=== PATIENT | male | born 1950 | race Caucasian/White ===

== ENCOUNTER 2024-02-10 09:52 | Observation (INO) | payer MEDICARE, SELFPAY ==
[2024-02-10] VITALS (14 sets, daily range): BP systolic 169–199; BP diastolic 74–91; PULSE 60–97; RESP 14–21; TEMP 36.6–36.8; O2SAT 95–100; BMI 34.0
--- NOTE | ~2024-02-10 | XR_ITS ---
EXAMINATION: XR chest 1V DATE: 02/10/2024 10:36 INDICATION: Slurred speech. Right hemiparesis. TECHNIQUE: A single frontal view of the chest was obtained. COMPARISON: CT abdomen and pelvis 10/22/2017 FINDINGS: There are airspace opacities at left lung base. No pleural effusion or pneumothorax. The he art size is normal. There are changes of anterior fusion procedure in cervical spine. IMPRESSION: 1. Airspace opacities at left lung base, consistent with atelectasis versus pneumonia. Reviewed, dictated and finalized at location A. PILOT ENGINEER IMPRESSION: 1. Airspace opacities at left lung base, consistent with atelectasis versus pne umonia.
--- NOTE | ~2024-02-10 | MR_ITS ---
EXAMINATION: MR brain/brain stem wo con DATE: 02/11/2024 16:37 INDICATION: stroke evaluation TECHNIQUE: Magnetic resonance imaging (MRI) of the brain and brainstem was performed without intraven ous contrast. Sequences included sagittal and axial T1-weighted SE, axial diffusion-weighted FS EPI A SSET, axial T2*-weighted GRE, axial T2-weighted FLAIR Propeller, and axial T2-weighted Propeller. Michael arent diffusion coefficient (ADC) maps were created. COMPARISON: CT brain and CTA brain carotid 02/10/2024 FINDINGS: Very small focus of restricted diffusion in the right centrum semiovale. Slightly larger but still fo hawa area of (ventricular acute diffusion measuring up to 1.5 cm. Old focal lacunar infarct in the lef t basal ganglia and adjacent white matter. No MRI evidence of hemorrhage or extra-axial collection. N o suspicious foci of susceptibility to suggest prior intraparenchymal hemorrhage. Moderate patchy whi te matter hyperintensity, likely representing moderate small vessel ischemic disease . Mild generalized parenchymal volume loss. The basilar cisterns are patent. Flow voids are preserved . Paranasal sinuses are within normal limits. Globes and orbital contents are within normal limits. IMPRESSION: Small, focal acute infarcts involving the left periventricular white matter and right centrum semiova le. Reviewed, dictated and finalized at location K. S MGR IMPRESSION: Small, focal acute infarcts involving the left periventricular white matter and right centrum semiovale.
--- NOTE | ~2024-02-10 | CT_ITS ---
EXAMINATION: CTA BRAIN/CAROTID DATE: 02/10/2024 10:30 INDICATION: Right-sided weakness and slurred speech TECHNIQUE: Computed tomographic angiography (CTA) of the head and neck was performed with 100 mL Omni paque-350 intravenous contrast. Multiplanar reconstructions and maximum intensity projection 3D-recon structions of the carotid arteries and of the intracranial arteries were created by the technologist on a separate workstation. Automated exposure control and iterative reconstruction technique were emp loyed.The dose-length product was 1145.84 mGy-cm. COMPARISON: None. FINDINGS: Carotid arteries: Visualized aortic arch is normal in caliber with some ulcerated atherosclerotic plaque but with no he modynamic shift of stenosis or dissection. There is mild atherosclerotic plaque with 10% stenosis of the right carotid bulb relative to normal distal artery lumen diameter (NASCET criteria). There is ad ditional small amount of atherosclerotic plaque with 0% stenosis of the left carotid bulb relative to normal distal artery lumen diameter. The extracranial vertebral arteries are codominant with no hemo dynamically significant stenosis. Mild emphysema. Mild cervical spondylosis with C4-C5 instrumented a nterior spinal fusion with interbody fusion device and anterior plate-screw fixation. Intracranial ar teries Bilateral vertebral arteries are codominant. There is atherosclerotic plaque without hemodynamically significant stenosis at the bilateral carotid siphons. There is no hemodynamically significant stenos is in the vertebral, basilar and internal carotid arteries. There are no aneurysms identified. Both A1 and P1 segments are patent. There are also patent anterior communicating and right posterior commu nicating arteries. Cerebral arterial arborization appears symmetric. IMPRESSION: 1. 10% stenosis of the right carotid bulb relative to normal distal artery lumen diameter (NASCET cri teria). 2. 0% stenosis of the left carotid bulb relative to normal distal artery lumen diameter. 3. Nonhemodynamically significant atherosclerotic plaque at the bilateral carotid siphons. No hemodyn amically significant stenosis, thrombosis or aneurysm. Reviewed, dictated and finalized at location B. ATIONAL TECHNOLOGY SPECIALIST IMPRESSION: 1. 10% stenosis of the right carotid bulb relative to normal distal artery lume n diameter (NASCET criteria). 2. 0% stenosis of the left carotid bulb relative to normal distal artery lumen diameter. 3. Nonhemodynamically significant atherosclerotic plaque at the bilateral carot id siphons. No hemodynamically significant stenosis, thrombosis or aneurysm.
--- NOTE | ~2024-02-10 | CT_ITS ---
CT head without contrast Indication: Right-sided weakness, slurred speech Technique: Serial scans were obtained through the brain without the administration of contrast. Dose reduction technique was used on this scan by utilizing automated exposure control and iterative recon struction technique. The dose-length product (DLP) was 605.33 mGy-cm. Findings: There is no evidence of intracranial hemorrhage, mass lesion, or acute infarct. Several sca ttered chronic lacunar infarcts are noted. The ventricles and subarachnoid spaces are dilated, consis tent with minimal atrophy. Low attenuation regions are seen within the periventricular white matter bilaterally, likely representing changes from chronic microvascular ischemic disease. There is no britta dence of edema, mass effect or midline shift. The visualized paranasal sinuses and mastoid air cell s are clear. Impression: No intracranial hemorrhage, mass, or acute infarct. Several chronic lacunar infarcts. Atrophy and chronic white matter changes, as above. Case discussed with Dr. Johnson at 10:35 AM on 01/14/2024. Reviewed, dictated and finalized at location . CAL REVIEWER Impression: No intracranial hemorrhage, mass, or acute infarct. Several chronic lacunar infarcts. Atrophy and chronic white matter changes, as above. Case discussed with Dr. Johnson at 10:35 AM on 01/14/2024.
--- NOTE | 2024-02-10 10:01 | ECG_ITS ---
Test Date: 2024-02-10 10:17:36 Measurements Intervals [place] Rate: 72 P: 17 MI: 156 QRS: -33 QRSD: 106 T: 81 QT: 370 QTc: 406 Interpretive Statements SINUS RHYTHM MARKED LEFT AXIS DEVIATION [QRS AXIS < -30] artifact No previous ECG available for comparison Electronically Signed On 02-10-2024 18:12:16 LABORER HEADING by Madison Dorsey M.D.
[2024-02-10 10:07] LABS: Glucose Point of Care 128 mg/dl (65-105)
[2024-02-10 10:32] LABS: Basophils Absolute Auto 0.1 K/mm3 (0.0-0.1); Basophils Percent Auto 0.8 % (0.2-1.2); Eosinophils Absolute Auto 0.3 K/mm3 (0-0.3); Eosinophils Percent Auto 4.4 % (0-4.4); Hemoglobin 15.3 g/dL (14.0-18.0); Immature Granulocyte Absolute 0.03 K/mm3 (0.00-0.031); Immature Granulocyte Percent A 0.5 % (0-0.5); Lymphocytes Absolute Auto 1.66 K/mm3 (0.9-3.2); Lymphocytes Percent Auto 25.1 % (18.3-44.2); Mean Corpuscular HGB Conc 32.6 g/dl (32-36); Mean Corpuscular Hemoglobin 30.4 pg (26-34); Mean Corpuscular Volume 93.4 fl (80-100); Mean Platelet Volume 10.1 fl (7.4-10.4); Monocytes Absolute Auto 0.7 K/mm3 (0.1-0.6); Monocytes Percent Auto 10.4 % (2.6-8.5); Neutrophils Absolute Auto 3.9 K/mm3 (1.3-6.7); Neutrophils Percent Auto 58.8 % (45.5-73.1); Platelet Count Result 162 k/mm3 (150-375); Red Blood Count 5.03 M/mm3 (4.6-6.20); Red Cell Distribution Width 13.6 % (11.5-14.5); White Blood Count 6.6 K/mm3 (4.5-10.0)
[2024-02-10 10:47] LABS: Prothrombin Time 13.7 Seconds (11.1-14.7)
[2024-02-10 10:48] LABS: Alanine Aminotransferase 32 U/L (6-50); Albumin Level 4.4 g/dL (3.5-5.1); Alkaline Phosphatase 63 U/L (38-126); Anion Gap 5 mmol/L (4-12); Aspartate Amino Transferase 29 U/L (17-59); Bilirubin,Total 0.8 mg/dL (0.2-1.3); Blood Urea Nitrogen 17 mg/dL (9-20); Calcium 9.2 mg/dL (8.4-10.2); Carbon Dioxide 29 mmol/L (22-30); Chloride 105 mmol/L (98-107); Estimated CRCL calculation 84 ml/min; Estimated Glomerular Filt Rate > 60; Glucose 130 mg/dL (65-110); Partial Thromboplastin Time 27.2 Seconds (22.3-36.8); Sodium 139 mmol/L (137-145)
[2024-02-10 11:02] LABS: Troponin I 0.059 ng/mL (0.000-0.034)
[2024-02-10 11:36] LABS: Glucose Point of Care 100 mg/dl (65-105)
--- NOTE | 2024-02-10 12:51 | ED_ITS ---
HPI - Neuro Symptoms/Deficit General Chief Complaint: Suspected CVA Stated Complaint: right side weakness Time Seen by Provider: 02/10/24 11:13 Source: patient Mode of arrival: ambulatory Limitations: no limitations History of Present Illness HPI Narrative: 73-year-old with a history of hypertension, arthralgias, here with the complaints of right sided weakness this started about 1:00 a.m. this morning. Patient states that his right arm and right lower leg were heavy he was unable to use vital signs contusion pressure. However he managed to sleep came to the ER this morning as he was still having difficulty in walking. He denies any headache. Denies any previous history of stroke. Onset (ago): hour(s) (9) Timing confirmed by: family member Location: right arm and right leg History of same: No Severity: moderate Relieving factors: none Exacerbating factors: none Context: sudden onset Associated symptoms: denies other symptoms Related Data Allergies Allergy/AdvReac Type Severity Reaction Status Date / Time Penicillins Allergy Unknown Verified 07/30/11 13:38 Review of Systems 2 Review of Systems: All systems reviewed & are unremarkable except as noted in HPI and below Constitutional: Constitutional: Reports no additional constitutional complaints Eyes: Eyes: Reports no additional eye complaints ENT: Reports system reviewed and no additional complaints, except as documented Cardiovascular: Cardiovascular: Reports no additional cardiovascular complaints Respiratory: Respiratory: Reports no additional respiratory complaints Gastrointestinal: Gastrointestinal: Reports no additional gastrointestinal complaints Musculoskeletal: Musculoskeletal: Reports no additional musculoskeletal complaints Neurologic: Reports system reviewed and no additional complaints, except as documented PMFSH Family History Family History Father Family history of lung cancer Mother Family history of coronary artery disease Social History Social History Smoking end date: 02/11/11 Alcohol intake: never Exam 2 Narrative: GENERAL: Well-appearing, well-nourished, and in no acute distress. HEAD: Normocephalic, atraumatic. EYES: PERRLA and EOMI. ENT: Nares clear, no rhinorrhea or epistaxis. Mucous membranes moist. has loss of nasolabial fold in the right . NECK: Supple. CHEST: Clear to auscultation. No respiratory distress. HEART: Regular rate and rhythm. No murmur heard. Normal peripheral pulses. ABDOMEN: Soft, nontender, nondistended, normal active bowel sounds. EXTREMITIES: Normal range of motion. No edema. SKIN: Warm, dry, no rash. NEURO: No focal deficits. Alert and oriented x3.mild loss of right facial PSYCH: Normal mood and affect. Course Course Emergency Course: Informed patient about his lab work , CT findings , agreed for admission. discussed with Dr. Noel will consult , discussed with Hospitalist will accept. Vital Signs Vital signs: Vital Signs Temperature 36.6 C 02/10/24 09:58 Pulse Rate 78 02/10/24 09:58 Respiratory Rate 20 02/10/24 09:58 Blood Pressure 180/74 H 02/10/24 09:58 Pulse Oximetry 98 02/10/24 09:58 Oxygen Delivery Room Air 02/10/24 09:58 Temperature 36.6 C 02/10/24 09:58 Pulse Rate 62 02/10/24 11:20 Respiratory Rate 14 02/10/24 11:14 Blood Pressure 169/88 H 02/10/24 11:14 Pulse Oximetry 98 02/10/24 11:14 Oxygen Delivery Room Air 02/10/24 09:58 MDM - Neuro Symptoms/Deficit Differential Diagnosis Differential diagnosis: Likely cerebrovascular accident and transient cerebral ischemia Medical Records Attestation: I reviewed the patient's medical records. Lab Data Attestation: I reviewed the patient's lab results. 02/10/24 10:12 02/10/24 10:12 Labs: Lab Results 02/10/24 02/10/24 02/10/24 Range/Units 10:05 10:12 11:33 WBC 6.6 (4.5-10.0) K/mm3 RBC 5.03 (4.6-6.20) M/mm3 Hgb 15.3 (14.0-18.0) g/dL Hct 47.0 (42.0-52.0) % MCV 93.4 (80-100) fl MCH 30.4 (26-34) pg MCHC 32.6 (32-36) g/dl RDW 13.6 (11.5-14.5) % Plt Count 162 (150-375) k/mm3 MPV 10.1 (7.4-10.4) fl Immature Gran % (Auto) 0.5 (0-0.5) % Neut % (Auto) 58.8 (45.5-73.1) % Lymph % (Auto) 25.1 (18.3-44.2) % [place] % (Auto) 10.4 H (2.6-8.5) % Eos % (Auto) 4.4 (0-4.4) % Baso % (Auto) 0.8 (0.2-1.2) % Lymph # (Auto) 1.66 (0.9-3.2) K/mm3 [place] # (Auto) 0.7 H (0.1-0.6) K/mm3 Eos # (Auto) 0.3 (0-0.3) K/mm3 Baso # (Auto) 0.1 (0.0-0.1) K/mm3 Abs Immat Gran (auto) 0.03 (0.00-0.031) K/mm3 Absolute Neuts (auto) 3.9 (1.3-6.7) K/mm3 Absolute Nucleated RBC 0.000 (0.0-0.012) K/mm3 Nucleated RBC % 0.0 (0.0-0.2) % PT 13.7 (11.1-14.7) Seconds INR 1.0 APTT 27.2 (22.3-36.8) Seconds Sodium 139 (137-145) mmol/L Potassium 4.0 (3.4-5.0) mmol/L Chloride 105 (98-107) mmol/L Carbon Dioxide 29 (22-30) mmol/L Anion Gap 5 (4-12) mmol/L BUN 17 (9-20) mg/dL Creatinine 0.90 (0.7-1.3) mg/dL Estim Creat Clear Calc 84 ml/min Estimated GFR > 60 (59 - ) Glucose 130 H (65-110) mg/dL POC Capillary Glucose 128 H 100 (65-105) mg/dl Calcium 9.2 (8.4-10.2) mg/dL Total Bilirubin 0.8 (0.2-1.3) mg/dL AST 29 (17-59) U/L ALT 32 (6-50) U/L Alkaline Phosphatase 63 (38-126) U/L Troponin I 0.059 H* (0.000-0.034) ng/mL Total Protein 7.0 (6.3-8.2) g/dL Albumin 4.4 (3.5-5.1) g/dL ECG Data EKG #1: ECG completion date: 02/10/24 ECG completion time: 10:17 EKG Interpretation: normal rate (72), non-specific ST changes and left axis Discharge Plan Discharge Clinical Impression: Right sided weakness, TIA (transient ischemic attack) Patient Disposition: Still a Patient Condition: Stable Patient Language: Indonesian Follow-up/Referrals: Bonilla,Vernon Pepper MD [Primary Care Provider] - Time of Disposition: 13:37 Quality Stroke Date of last known normal: 02/10/24 Time of last known normal: 11:00 Stroke Scale Stroke Scale 1: Stroke scale date:: 02/10/24 Stroke scale time:: 11:05 1a Level of consciousness: alert-0 1b Level of consciousness questions: answers both correctly-0 1c Level of consciousness commands: obeys both correctly-0 2 Best gaze: normal-0 3 Visual: no visual loss-0 4 Facial palsy: minor paralysis-1 5a Motor: left arm: no drift-0 5b Motor: right arm: no drift-0 6a Motor: left leg: no drift-0 6b Motor: right leg: no drift-0 7 Limb ataxia: absent-0 8 Sensory: normal-0 9 Best language: no aphasia-0 10 Dysarthria: normal-0 11 Extinction and inattention: no abnormality-0 Level:: 1
--- NOTE | 2024-02-10 12:57 | P.HP_ITS ---
H&P: HPI History of Present Illness Date/Time: 02/10/24 12:57 Chief Complaint: Right side weakness Narrative: 73-year-old male presents the hospital with complaints of right-sided weakness in upper and lower extremities. Patient states that he woke up in middle of night until heaviness on his right side is upper lower extremities. After he went to the bathroom he went back to bed. Patient's last known time of well was 1:00 a.m. he states that whenever he woke up during the day he felt the same way so he came into the emergency room. Patient also complains of increased shortness of breath wheezing, a cough with sputum. Chest x-ray shows Airspace opacities at left lung base, consistent with atelectasis versus pneumonia. 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 Patient's baseline troponin is elevated at 0.059 with 2 hour troponin trending down, aggressive lab work is within normal limits. Review of Systems Review of Systems: 12 systems were reviewed and are negativ e except for as per HPI. [facility] Past Medical History Medical History (Updated 02/10/24 @ 22:13 by Gia Craft APRN) Shingles COPD (chronic obstructive pulmonary disease) Anxiety Family History Family History (Updated 02/10/24 @ 22:14 by Gia Craft APRN) Father Family history of lung cancer Mother Family history of coronary artery disease Other Cerebrovascular accident Social History Social History Smoking status: Former smoker Tobacco type: cigarettes Smoking end date: 10/20/23 Alcohol intake: never Substance use: never Do You Feel Safe in your Home?: Yes Lack of Transportation: No Lack of Food: Never True Current Housing: I Have Housing Concerned About Future Housing: No Difficulty Paying Gas/Electric Bills: No Difficulty Paying for Meds: No Currently Unemployed: No Education: Associate Degree Difficulty w/ Childcare or Family Care: No Spiritual care concerns: No Meds Home Medications and Allergies Home Medications ?Medication ?Instructions ?Recorded ?Confirmed ?Type albuterol sulfate 90 mcg/actuation 2 puff inhalation .q12hr 02/10/24 02/10/24 History aerosol inhaler budesonide-formoterol HFA 160 2 puff inhalation Q12H 02/10/24 02/10/24 History mcg-4.5 mcg/actuation aerosol inhaler diazepam 10 mg tablet 10 mg PO HS PRN anxiety 02/10/24 02/10/24 History meloxicam 15 mg tablet 15 mg PO DAILY 02/10/24 02/10/24 History metoprolol succinate 100 mg 100 mg PO DAILY 02/10/24 02/10/24 History tablet,extended release 24 hr valacyclovir 500 mg tablet 500 mg PO DAILY 02/10/24 02/10/24 History Allergies Allergy/AdvReac Type Severity Reaction Status Date / Time Penicillins Allergy Unknown Verified 07/30/11 13:38 Vital Signs Vital Signs - 24 hr 02/10/24 09:58 02/10/24 09:58 02/10/24 11:14 Temperature 97.8 F Pulse Rate 78 78 63 Respiratory Rate 20 20 14 Blood Pressure 180/74 H 180/74 H 169/88 H Pulse Oximetry 98 98 98 Oxygen Delivery Room Air 02/10/24 11:20 Temperature Pulse Rate 62 Respiratory Rate Blood Pressure Pulse Oximetry Oxygen Delivery Exam Narrative: General: well appearing, appears stated age. HEENT: Left facial droop, normocephalic, atraumatic. Mucous membranes moist. EOMI, PERRLA, bilateral sclera anicteric, no conjunctival injection. Neck supple without JVD, lymphadenopathy, or bruit. Respiratory: Rhonchi and inspiratory and expiratory wheezes Cardiovascular: Regular rate and rhythm, normal S1-S2 upon ascultation. No murmurs, rubs, or clicks. PMI is nondisplaced, capillary refill less than 3 second. Abdomen: Soft, round, no pulsatile masses, nondistended and nontender. No rebound, no guarding. No CVA tenderness, no hepatosplenomegaly. Bowel sounds present to all four quadrants. No high pitch or tinkling sounds, resonant to percussion. Extremities: No cyanosis, clubbing, or edema present. Pulses are palpable 2/2. Active ROM to all four extremities. 5/5 strength in all extremities Neuro: Alert and orientated x 4. PERRLA. Cranial nerves 2-12 intact without focal deficit. Skin: Warm, dry, and intact, without rash, erythema, or lesion. Psych: pleasant, cooperative, normal speech, normal affect, no hallucinations, no dysarthia H&P: Results Labs Labs: Short CBC 02/10/24 Range/Units 10:12 WBC 6.6 (4.5-10.0) K/mm3 Hgb 15.3 (14.0-18.0) g/dL Hct 47.0 (42.0-52.0) % Plt Count 162 (150-375) k/mm3 BMP 02/10/24 10:12 Sodium 139 Potassium 4.0 Chloride 105 Carbon Dioxide 29 BUN 17 Creatinine 0.90 Glucose 130 H Calcium 9.2 Cardiac Enzymes 02/10/24 Range/Units 10:12 Troponin I 0.059 H* (0.000-0.034) ng/mL Liver Function 02/10/24 Range/Units 10:12 Total Bilirubin 0.8 (0.2-1.3) mg/dL AST 29 (17-59) U/L ALT 32 (6-50) U/L Alkaline Phosphatase 63 (38-126) U/L Albumin 4.4 (3.5-5.1) g/dL Assessment and Plan Assessment and plan (1) Right sided weakness: Code(s): R53.1 - Weakness Status: Acute Assessment and Plan: Possible stroke CT head and CTA show no acute stroke, old infarcts seen Neurology consulted pending recommendations Permissive hypertension Plavix 300 mg x 1 given in the emergency room Daily Plavix Aspirin 3 and 25 mg x 1 given in the emergency room Echocardiogram pending (2) Elevated troponin: Code(s): R79.89 - Other specified abnormal findings of blood chemistry Status: Acute Assessment and Plan: Flat Patient denies chest pain EKG for chest pain Trend troponin until flat (3) Pneumonia: Code(s): J18.9 - Pneumonia, unspecified organism Status: Acute Assessment and Plan: atelectasis versus pneumonia On assessment patient's lung sounds coarse, rhonchi and inspiratory and expiratory wheezes Breathing treatments q.6 Azithromycin and Rocephin Guaifenesin (4) COPD (chronic obstructive pulmonary disease): Code(s): J44.9 - Chronic obstructive pulmonary disease, unspecified Status: Acute Assessment and Plan: Secondary to above Home inhaler reordered (5) Anxiety: Code(s): F41.9 - Anxiety disorder, unspecified Status: Acute Assessment and Plan: Home diazepam has been reordered Plan On long-term Valtrex Quality VTE Prophylaxis VTE prophylaxis: mechanical ordered and pharmacologic ordered Hospitalist MIPS Advance Care Plan I have confirmed that the patient's Advanced Care Plan is present, code status is documented, or surrogate decision maker is listed in patient medical record.: Yes Medication Reconciliation I have utilized all available resources to obtain, update and review the patients current medications (includes all prescriptions, OTC, herbals, cannabis, and nutritional supplements).: Yes
--- NOTE | 2024-02-10 13:28 | ECG_ITS ---
Test Date: 2024-02-10 13:37:09 Measurements Intervals [place] Rate: 60 P: 20 GA: 178 QRS: -56 QRSD: 106 T: 89 QT: 403 QTc: 404 Interpretive Statements SINUS RHYTHM LEFT ANTERIOR FASCICULAR BLOCK [QRS AXIS <= -45, QR IN I, RS IN II] NONSPECIFIC ST & T-WAVE ABNORMALITY Compared to ECG 02/10/2024 10:17:36 Left anterior fascicular block now present Left-axis deviation no longer present T-wave abnormality still present Electronically Signed On 02-10-2024 18:06:12 PAPER GOODS MACHINE OPERATOR by Madison Dorsey M.D.
[2024-02-10] MEDS: CLOPIDOGREL BISULFATE 300 MG TABLET PO (14:03)
[2024-02-10 14:13] LABS: Troponin I 0.057 ng/mL (0.000-0.034)
--- NOTE | 2024-02-10 16:40 | ECG_ITS ---
Test Date: 2024-02-10 16:50:10 Measurements Intervals [place] Rate: 60 P: 19 NM: 184 QRS: -50 QRSD: 101 T: 78 QT: 392 QTc: 394 Interpretive Statements SINUS RHYTHM LEFT ANTERIOR FASCICULAR BLOCK [QRS AXIS <= -45, QR IN I, RS IN II] NONSPECIFIC ST & T-WAVE ABNORMALITY Compared to ECG 02/10/2024 13:37:09 No significant changes Electronically Signed On 02-10-2024 17:55:26 COUNTY DIRECTOR by Madison Dorsey M.D.
--- NOTE | 2024-02-10 17:25 | ADMGEN ---
This patient, Carmen Morgan, was admitted to Medical Room 260-01. Patient/family oriented to hospital policies and general routines including ID bracelet, bed and alarms, visiting hours, pain management, procedures, bathroom and other care routines, personal items, smoking policy, room service/diet, and visiting hours. Information on how to activate the Rapid Response Team has been discussed. Patient/Family are encouraged to report perceived risks to care and to ask questions if they do not understand what they are told or what they should do.
[2024-02-10 17:39] LABS: Troponin I 0.059 ng/mL (0.000-0.034)
[2024-02-10] MEDS: guaiFENesin/DEXTROMETHORPHAN 10 ML UDC PO (23:07)
[2024-02-11] VITALS (17 sets, daily range): BP systolic 138–180; BP diastolic 74–85; PULSE 53–80; RESP 14–20; TEMP 36.1–36.8; O2SAT 93–98
[2024-02-11] MEDS: IPRATROPIUM 0.5 MG/ALBUTEROL SULFATE 2.5 MG AMPUL.NEB 3 ML INHALATION ×4 (01:14→22:12)
[2024-02-11] MEDS: guaiFENesin/DEXTROMETHORPHAN 10 ML UDC PO ×5 (05:43→20:01)
[2024-02-11 06:26] LABS: Anion Gap 3 mmol/L (4-12); Blood Urea Nitrogen 14 mg/dL (9-20); Calcium 8.9 mg/dL (8.4-10.2); Carbon Dioxide 27 mmol/L (22-30); Chloride 104 mmol/L (98-107); Estimated CRCL calculation 93 ml/min; Estimated Glomerular Filt Rate > 60; Glucose 131 mg/dL (65-110); Sodium 134 mmol/L (137-145)
[2024-02-11 06:39] LABS: Troponin I 0.049 ng/mL (0.000-0.034)
[2024-02-11] MEDS: FLUTICASONE/SALMETEROL 115-21 MCG INHALER 1 PUFF 2 PUFF INHALATION ×2 (08:26→22:12)
[2024-02-11] MEDS: ASPIRIN 325 MG TABLET PO (08:46)
[2024-02-11] MEDS: CLOPIDOGREL BISULFATE 75 MG TABLET PO (08:46)
[2024-02-11] MEDS: valACYclovir HCL 500 MG TABLET PO (08:46)
[2024-02-11] MEDS: METOPROLOL SUCCINATE EXT REL 100 MG TABCR PO (08:46)
--- NOTE | 2024-02-11 09:27 | P.PNIM_ITS ---
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 Neurology consulted pending recommendations Permissive hypertension Plavix 300 mg x 1 given in the emergency room Daily Plavix Aspirin 3 and 25 mg x 1 given in the emergency room Echocardiogram ordered- pending (2) Elevated troponin: Code(s): R79.89 - Other specified abnormal findings of blood chemistry Status: Acute Assessment and Plan: Flat Patient denies chest pain EKG for chest pain Trend troponin until flat (3) Pneumonia: Code(s): J18.9 - Pneumonia, unspecified organism Status: Acute Assessment and Plan: atelectasis versus pneumonia Patient symptomatic- lung sounds coarse, rhonchi and inspiratory and expiratory wheezes Breathing treatments q.6 Azithromycin and Rocephin-will continue Guaifenesin prn (4) COPD (chronic obstructive pulmonary disease): Code(s): J44.9 - Chronic obstructive pulmonary disease, unspecified Status: Acute Assessment and Plan: Secondary to above Home inhaler reordered (5) Anxiety: Code(s): F41.9 - Anxiety disorder, unspecified Status: Acute Assessment and Plan: Home diazepam has been reordered Plan On long-term Valtrex Time Spent With Patient Time with patient: Greater than 35 minutes Subjective Date/time seen: 02/11/24 09:27 Interval history: Right side weakness Narrative retrieved from H/P: 73-year-old male presents the hospital with complaints of right-sided weakness in upper and lower extremities. Patient states that he woke up in middle of night until heaviness on his right side is upper lower extremities. After he went to the bathroom he went back to bed. Patient's last known time of well was 1:00 a.m. he states that whenever he woke up during the day he felt the same way so he came into the emergency room. Patient also complains of increased shortness of breath wheezing, a cough with sputum. Chest x-ray shows Airspace opacities at left lung base, consistent with atelectasis versus pneumonia. 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 Patient's baseline troponin is elevated at 0.059 with 2 hour troponin trending down, aggressive lab work is within normal limits. Pt is seen and examined. he is up in the chair- eating, denies n/v,d. Review of Systems Review of Systems: 12 systems were reviewed and are negativ e except for as per HPI. Exam Narrative: General: well appearing, appears stated age. HEENT: Left facial droop, normocephalic, atraumatic. Mucous membranes moist. EOMI, PERRLA, bilateral sclera anicteric, no conjunctival injection. Neck supple without JVD, lymphadenopathy, or bruit. Respiratory: Rhonchi and inspiratory and expiratory wheezes Cardiovascular: Regular rate and rhythm, normal S1-S2 upon ascultation. No murmurs, rubs, or clicks. PMI is nondisplaced, capillary refill less than 3 second. Abdomen: Soft, round, no pulsatile masses, nondistended and nontender. No rebound, no guarding. No CVA tenderness, no hepatosplenomegaly. Bowel sounds present to all four quadrants. No high pitch or tinkling sounds, resonant to percussion. Extremities: No cyanosis, clubbing, or edema present. Pulses are palpable 2/2. Active ROM to all four extremities. 5/5 strength in all extremities Neuro: Alert and orientated x 4. PERRLA. Cranial nerves 2-12 intact without focal deficit. Skin: Warm, dry, and intact, without rash, erythema, or lesion. Psych: pleasant, cooperative, normal speech, normal affect, no hallucinations, no dysarthia Objective Data Vital Signs Vital Signs: Vital Signs - 24 hr 02/10/24 09:58 02/10/24 09:58 02/10/24 11:14 Temperature 97.8 F Pulse Rate 78 78 63 Respiratory Rate 20 20 14 Blood Pressure 180/74 H 180/74 H 169/88 H Pulse Oximetry 98 98 98 Oxygen Delivery Room Air 02/10/24 11:20 02/10/24 11:32 02/10/24 13:52 Temperature Pulse Rate 62 62 61 Respiratory Rate 20 15 Blood Pressure 169/82 H 199/88 H Pulse Oximetry 98 97 Oxygen Delivery 02/10/24 13:58 02/10/24 14:02 02/10/24 14:32 Temperature Pulse Rate 61 60 60 Respiratory Rate 18 20 18 Blood Pressure 190/91 H 183/83 H 176/76 H Pulse Oximetry 100 97 97 Oxygen Delivery 02/10/24 15:02 02/10/24 15:32 02/10/24 16:00 Temperature 97.9 F Pulse Rate 60 62 61 Respiratory Rate 20 21 H 16 Blood Pressure 177/79 H 190/91 H 172/79 H Pulse Oximetry 97 96 97 Oxygen Delivery 02/10/24 17:00 02/10/24 17:07 02/10/24 20:00 Temperature Pulse Rate 61 97 Respiratory Rate 19 15 Blood Pressure 175/76 H 174/84 H Pulse Oximetry 95 100 Oxygen Delivery Room Air 02/10/24 20:00 02/10/24 20:00 02/11/24 00:00 Temperature 98.2 F Pulse Rate 97 60 53 L Respiratory Rate 18 Blood Pressure 180/78 H Pulse Oximetry 97 Oxygen Delivery 02/11/24 00:00 02/11/24 01:15 02/11/24 01:25 Temperature 97 F L Pulse Rate 61 57 L 58 L Respiratory Rate 18 20 20 Blood Pressure 170/80 H Pulse Oximetry 98 Oxygen Delivery 02/11/24 01:26 02/11/24 04:00 02/11/24 04:00 Temperature 97 F L Pulse Rate 62 57 L Respiratory Rate 18 Blood Pressure 168/74 H Pulse Oximetry 96 94 Oxygen Delivery Room Air 02/11/24 08:00 02/11/24 08:00 02/11/24 08:26 Temperature Pulse Rate 62 60 Respiratory Rate 14 Blood Pressure 180/75 H Pulse Oximetry 94 95 Oxygen Delivery Room Air 02/11/24 08:26 02/11/24 08:34 02/11/24 08:46 Temperature Pulse Rate 60 65 80 Respiratory Rate 20 20 Blood Pressure Pulse Oximetry Oxygen Delivery Intake/Output Intake/Output: Intake & Output 02/08/24 02/09/24 02/10/24 02/11/24 23:59 23:59 23:59 23:59 Intake Total 590 Balance 590 Meds/Results Medications: Active Medications Generic Name Dose Route Start Last Admin Trade Name Freq PRN Reason Stop Dose Admin Acetaminophen 650 mg 02/10/24 15:26 Acetaminophen 325 Mg Tablet PO Q4H PRN Mild Pain (1-3) or Fever Albuterol 2 puff 02/10/24 22:45 Albuterol Sulfate (*Sp) Aerosol 1 Puff INHALATION Q12HRT PRN SOB/wheezing Albuterol/Ipratropium 3 ml 02/11/24 02:00 02/11/24 08:25 Ipratropium 0.5 Mg/Albuterol Sulfate 2.5 Mg Ampul.Neb 3 Ml INHALATION 3 ml Q6HRT [facility] Administration Aspirin 325 mg 02/11/24 08:00 02/11/24 08:46 Aspirin 325 Mg Tablet PO 325 mg DAILY@0800 TRUONG Administration Clopidogrel Bisulfate 75 mg 02/11/24 09:00 02/11/24 08:46 Clopidogrel Bisulfate 75 Mg Tablet PO 75 mg QAM [facility]UONG Administration Diazepam 10 mg 02/10/24 21:09 Diazepam (*Crx) 5 Mg Tablet PO HS PRN anxiety Enoxaparin Sodium 40 mg 02/11/24 09:00 Enoxaparin 40 Mg/0.4 Ml Syringe SUB-Q DAILY [facility] Guaifenesin/Dextromethorphan 10 ml 02/11/24 00:00 02/11/24 08:47 Guaifenesin/Dextromethorphan 10 Ml Udc PO 10 ml Q4HR [facility]ONG Administration Ceftriaxone Sodium 1 gm in 50 mls @ 100 mls/hr 02/11/24 21:00 Rocephin 1 Gm/Ns 50 Ml IVPB Q24H [facility] Azithromycin 500 mg in 250 mls @ 250 mls/hr 02/11/24 21:00 Zithromax IVPB Q24H [facility] Metoprolol Succinate 100 mg 02/11/24 09:00 02/11/24 08:46 Metoprolol Succinate Ext Rel 100 Mg Tabcr PO 100 mg DAILY [facility] Administration Ondansetron HCl 4 mg 02/10/24 13:41 Ondansetron Inj 4 Mg/2 Ml Vial IV PUSH Q4H PRN Nausea Perflutren Lipid Microsphere 0 ml 02/10/24 18:56 Perflutren Lipid Microspheres 1.5 Ml Vial Diluted To 10 Ml Total Volume IV PUSH 02/13/24 18:56 ONCE PRN adequate visualization Protocol Fluticasone/Salmeterol 2 puff 02/10/24 21:10 02/11/24 08:26 Fluticasone/Salmeterol 115-21 Mcg Inhaler 1 Puff INHALATION 2 puff Q12HRT [facility]ONG Administration Valacyclovir HCl 500 mg 02/11/24 09:00 02/11/24 08:46 Valacyclovir Hcl 500 Mg Tablet PO 500 mg DAILY [facility] Administration Radiology Results: ITS Impressions Head CT 02/10/24 10:32 Impression: No intracranial hemorrhage, mass, or acute infarct. Several chronic lacunar infarcts. Atrophy and chronic white matter changes, as above. Case discussed with Dr. Johnson at 10:35 AM on 01/14/2024. Head/Neck CTA 02/10/24 10:36 IMPRESSION: 1. 10% stenosis of the right carotid bulb relative to normal distal artery lumen diameter (NASCET criteria). 2. 0% stenosis of the left carotid bulb relative to normal distal artery lumen diameter. 3. Nonhemodynamically significant atherosclerotic plaque at the bilateral carotid siphons. No hemodynamically significant stenosis, thrombosis or aneurysm. Chest X-Ray 02/10/24 10:50 IMPRESSION: 1. Airspace opacities at left lung base, consistent with atelectasis versus pneumonia. Labs Labs: Laboratory Results - last 24 hr 02/10/24 02/10/24 02/10/24 10:05 10:12 11:33 WBC 6.6 RBC 5.03 Hgb 15.3 Hct 47.0 MCV 93.4 MCH 30.4 MCHC 32.6 RDW 13.6 Plt Count 162 MPV 10.1 Immature Gran % (Auto) 0.5 Neut % (Auto) 58.8 Lymph % (Auto) 25.1 [place] % (Auto) 10.4 H Eos % (Auto) 4.4 Baso % (Auto) 0.8 Lymph # (Auto) 1.66 [place] # (Auto) 0.7 H Eos # (Auto) 0.3 Baso # (Auto) 0.1 Abs Immat Gran (auto) 0.03 Absolute Neuts (auto) 3.9 Absolute Nucleated RBC 0.000 Nucleated RBC % 0.0 PT 13.7 INR 1.0 APTT 27.2 Sodium 139 Potassium 4.0 Chloride 105 Carbon Dioxide 29 Anion Gap 5 BUN 17 Creatinine 0.90 Estim Creat Clear Calc 84 Estimated GFR > 60 Glucose 130 H POC Capillary Glucose 128 H 100 Calcium 9.2 Total Bilirubin 0.8 AST 29 ALT 32 Alkaline Phosphatase 63 Troponin I 0.059 H* Total Protein 7.0 Albumin 4.4 02/10/24 02/10/24 02/11/24 13:38 16:51 05:38 WBC RBC Hgb Hct MCV MCH MCHC RDW Plt Count MPV Immature Gran % (Auto) Neut % (Auto) Lymph % (Auto) [place] % (Auto) Eos % (Auto) Baso % (Auto) Lymph # (Auto) [place] # (Auto) Eos # (Auto) Baso # (Auto) Abs Immat Gran (auto) Absolute Neuts (auto) Absolute Nucleated RBC Nucleated RBC % PT INR APTT Sodium 134 L Potassium 4.0 Chloride 104 Carbon Dioxide 27 Anion Gap 3 L BUN 14 Creatinine 0.80 Estim Creat Clear Calc 93 Estimated GFR > 60 Glucose 131 H POC Capillary Glucose Calcium 8.9 Total Bilirubin AST ALT Alkaline Phosphatase Troponin I 0.057 H* 0.059 H* 0.049 H* Total Protein Albumin Quality VTE Prophylaxis VTE prophylaxis: mechanical ordered and pharmacologic ordered
[2024-02-11] MEDS: AZITHROMYCIN 500 MG/NS 250 ML 500 MG/250 ML BAG 250 MG IVPB (21:14)
[2024-02-12] VITALS (17 sets, daily range): BP systolic 135–151; BP diastolic 64–93; PULSE 57–79; RESP 14–24; TEMP 36.5–36.9; O2SAT 94–97
--- NOTE | 2024-02-12 | ECHO_ITS ---
Patient Info Name: Carmen Morgan Age: 73 years : 1950 Gender: Male Ht: 72 in Wt: 251 lbs BSA: 2.44 m2 HR: 65 bpm BP: 180 / 75 mmHg Exam Date: 02/12/2024 5:17 PM Exam Location: Echo Lab Patient Status: Outpatient Admit Date: 02/10/2024 Staff Ordering Physician: Gia Craft APRN Upper Marker: Florence Maciel RDCS Attending Provider: Deyvi Lundy MD Exam Type: CA echo doppler w bubble study Study Info Complete two-dimensional, color flow and Doppler transthoracic echocardiogram is performed with agitated saline. Contrast/Agitated Saline Contrast/Ag. Saline: Agitated Saline Amount: 20.00 ml Summary 1. Left ventricular chamber dimension is enlarged. 2. Left ventricular systolic function is normal, estimated at 60-65%. 3. There is no increased left ventricular wall thickness. 4. The left ventricular diastolic function is grade I diastolic dysfunction. 5. Left ventricular wall motion is normal. 6. Right ventricular chamber dimension is normal. 7. Right ventricular systolic function is normal. 8. Suboptimal bubble study. 9. There is mild tricuspid valve regurgitation. 10. No pulmonary hypertension, estimated pulmonary arterial systolic pressure is 23 mmHg. Recommendations * Repeat bubble study if clinical concern fro PFO is high. Left Ventricle Left ventricular chamber dimension is enlarged. Left ventricular systolic function is normal, estimated at 60-65%. There is no increased left ventricular wall thickness. Left ventricular wall motion is normal. The left ventricular diastolic function is grade I diastolic dysfunction. Right Ventricle Right ventricular chamber dimension is normal. Right ventricular systolic function is normal. Left Atria Left atrial chamber dimension is normal. Right Atria Right atrial chamber dimension is normal. Aortic Valve The aortic valve is trileaflet. There is mild aortic valve sclerosis. There is no aortic valve stenosis. There is no aortic valve regurgitation. Pulmonic Valve The pulmonic valve is normal. There is no pulmonic valve stenosis. There is no pulmonic regurgitation. Mitral Valve The mitral valve has normal leaflets. There is no mitral valve stenosis. There is no mitral valve regurgitation. Tricuspid Valve The tricuspid valve leaflets are normal. There is no significant tricuspid valve stenosis. There is mild tricuspid valve regurgitation. No pulmonary hypertension, estimated pulmonary arterial systolic pressure is 23 mmHg. Pericardium/Pleural The pericardium appears normal. There is no pericardial effusion. Inferior Vena Cava Normal inferior vena cava with >50% collapse upon inspiration consistent with normal right atrial pressure, 3 mmHg. Aorta The aortic root size at the sinus of Valsalva is normal. The prox ascending aorta size is normal. Left Ventricular Outflow Tract Name Value Normal LVOT 2D LVOT Diameter 2.3 cm LVOT Doppler LVOT Peak Gradient 5 mmHg LVOT Mean Gradient 2 mmHg LVOT VTI 23 cm LVOT VTI/AV VTI Ratio 0.6 LVOT Stroke Volume 94 ml LVOT CO 6.1 l/min LVOT CI 2.5 l/min/m2 Pulmonic Valve Name Value Normal PV Doppler PV Peak Gradient 3 mmHg Mitral Valve Name Value Normal MV Doppler MV Peak Gradient 5 mmHg MV Mean Gradient 2 mmHg MV Decel Mckinley 243 cm/s2 MV PHT 96 ms MV Area (PHT) 2.3 cm2 4.0-5.0 MV Area (Cont Eq VTI) 2.7 cm2 MV Diastolic Function MV E Peak Velocity 80 cm/s MV A Peak Velocity 96 cm/s MV E/A 0.8 MV Decel Time 332 ms MV Annular TDI MV E/e' (Septal) 12.9 <=8.0 MV E/e' (Lateral) 11.8 <=8.0 MV E/e' (Average) 12.3 Tricuspid Valve Name Value Normal TV Regurgitation Doppler TR Peak Velocity 224 cm/s TR Peak Gradient 20 mmHg Estimated PAP/RSVP RA Pressure 3 mmHg <=5 PA Systolic Pressure 23 mmHg <36 RV Systolic Pressure 23 mmHg <36 Aortic Valve Name Value Normal AV Doppler AV Peak Velocity 200 cm/s AV Peak Gradient 16 mmHg AV Mean Gradient 8 mmHg AV VTI 41 cm AV Area (Cont Eq VTI) 2.3 cm2 >=3.0 AV Area (Cont Eq Alf) 2.3 cm2 AV Regurgitation 2D LVOT Area 4.1 cm2 AV Regurgitation Doppler AR Decel Time 1,930 ms AR Decel Mckinley 118 cm/s2 AR PHT 560 ms Ventricles Name Value Normal LV Dimensions 2D/MM IVS Diastolic Thickness (2D) 0.8 cm 0.6-1.0 LVID Diastole (2D) 6.0 cm 4.2-5.8 LVIW Diastolic Thickness (2D) 1.0 cm 0.6-1.0 LVID Systole (2D) 4.3 cm 2.5-4.0 LVOT Diameter 2.3 cm LV Mass (2D Cubed) 199.85 g 88.00-224.00 LV Mass Index (2D Cubed) 82 g/m2 49-115 Relative Wall Thickness (2D) 0.32 LV Fractional Shortening/Ejection Fraction 2D/MM LV Fractional Shortening (2D) 27 % 25-43 LV EF (2D Teicholz) 52 % 52-72 LV Diastolic Volume (4C MOD) 159 ml LV EF (4C MOD) 54 % LV Diastolic Length (4C) 9.5 cm LV Systolic Length (4C) 8.2 cm LV Stroke Volume (4C MOD) 87 ml Atria Name Value Normal LA Dimensions LA Volume (4C A-L) 90 ml RA Dimensions RA Area (4C) 20.1 cm2 <=18.0 Report Signatures
[2024-02-12] MEDS: guaiFENesin/DEXTROMETHORPHAN 10 ML UDC PO ×6 (01:05→20:38)
[2024-02-12] MEDS: IPRATROPIUM 0.5 MG/ALBUTEROL SULFATE 2.5 MG AMPUL.NEB 3 ML INHALATION ×4 (01:58→20:30)
[2024-02-12] MEDS: FLUTICASONE/SALMETEROL 115-21 MCG INHALER 1 PUFF 2 PUFF INHALATION ×2 (07:28→20:30)
[2024-02-12 07:54] LABS: Hematocrit 46.4 % (42.0-52.0); Hemoglobin 15.3 g/dL (14.0-18.0); Mean Corpuscular Hemoglobin 30.8 pg (26-34); Mean Corpuscular Volume 93.4 fl (80-100); Mean Platelet Volume 9.9 fl (7.4-10.4); Platelet Count Result 157 k/mm3 (150-375); Red Blood Count 4.97 M/mm3 (4.6-6.20); Red Cell Distribution Width 13.9 % (11.5-14.5); White Blood Count 10.1 K/mm3 (4.5-10.0)
[2024-02-12 08:08] LABS: Anion Gap 3 mmol/L (4-12); Blood Urea Nitrogen 14 mg/dL (9-20); Calcium 9.3 mg/dL (8.4-10.2); Carbon Dioxide 31 mmol/L (22-30); Chloride 104 mmol/L (98-107); Estimated CRCL calculation 76 ml/min; Estimated Glomerular Filt Rate > 60; Glucose 151 mg/dL (65-110); Potassium 4.4 mmol/L (3.4-5.0); Sodium 138 mmol/L (137-145)
[2024-02-12] MEDS: ASPIRIN 325 MG TABLET PO (08:14)
[2024-02-12] MEDS: METOPROLOL SUCCINATE EXT REL 100 MG TABCR PO (08:14)
[2024-02-12] MEDS: valACYclovir HCL 500 MG TABLET PO (08:14)
[2024-02-12] MEDS: CLOPIDOGREL BISULFATE 75 MG TABLET PO (08:14)
--- NOTE | 2024-02-12 09:37 | P.PNIM_ITS ---
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 (2) Elevated troponin: Code(s): R79.89 - Other specified abnormal findings of blood chemistry Status: Acute Assessment and Plan: Patient denies chest pain EKG Trend troponin until flat- trending down (3) Pneumonia: Code(s): J18.9 - Pneumonia, unspecified organism Status: Acute Assessment and Plan: atelectasis versus pneumonia Patient symptomatic- lung sounds coarse, rhonchi and inspiratory and expiratory wheezes Breathing treatments q.6 Azithromycin and Rocephin-will continue Guaifenesin prn (4) COPD (chronic obstructive pulmonary disease): Code(s): J44.9 - Chronic obstructive pulmonary disease, unspecified Status: Acute Assessment and Plan: Secondary to above Home inhaler reordered (5) Anxiety: Code(s): F41.9 - Anxiety disorder, unspecified Status: Acute Assessment and Plan: Home diazepam has been reordered Plan On long-term Valtrex Time Spent With Patient Time with patient: Greater than 35 minutes Subjective Date/time seen: 02/12/24 09:37 Interval history: Right side weakness Narrative retrieved from H/P: 73-year-old male presents the hospital with complaints of right-sided weakness in upper and lower extremities. Patient states that he woke up in middle of night until heaviness on his right side is upper lower extremities. After he went to the bathroom he went back to bed. Patient's last known time of well was 1:00 a.m. he states that whenever he woke up during the day he felt the same way so he came into the emergency room. Patient also complains of increased shortness of breath wheezing, a cough with sputum. Chest x-ray shows Airspace opacities at left lung base, consistent with atelectasis versus pneumonia. 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 Patient's baseline troponin is elevated at 0.059 with 2 hour troponin trending down, aggressive lab work is within normal limits. Pt is seen and examined. he is up in the chair- eating, denies n/v,d. 02/11- no acute events overnight. waiting for neurology consult/ recommendations.m ri is done Review of Systems Review of Systems: 12 systems were reviewed and are negativ e except for as per HPI. Exam Narrative: General: well appearing, appears stated age. HEENT: Left facial droop, normocephalic, atraumatic. Mucous membranes moist. EOMI, PERRLA, bilateral sclera anicteric, no conjunctival injection. Neck supple without JVD, lymphadenopathy, or bruit. Respiratory: Rhonchi and inspiratory and expiratory wheezes Cardiovascular: Regular rate and rhythm, normal S1-S2 upon ascultation. No murmurs, rubs, or clicks. PMI is nondisplaced, capillary refill less than 3 second. Abdomen: Soft, round, no pulsatile masses, nondistended and nontender. No rebound, no guarding. No CVA tenderness, no hepatosplenomegaly. Bowel sounds present to all four quadrants. No high pitch or tinkling sounds, resonant to percussion. Extremities: No cyanosis, clubbing, or edema present. Pulses are palpable 2/2. Active ROM to all four extremities. 5/5 strength in all extremities Neuro: Alert and orientated x 4. PERRLA. Cranial nerves 2-12 intact without focal deficit. Skin: Warm, dry, and intact, without rash, erythema, or lesion. Psych: pleasant, cooperative, normal speech, normal affect, no hallucinations, no dysarthia Objective Data Vital Signs Vital Signs: Vital Signs - 24 hr 02/11/24 10:45 02/11/24 11:22 02/11/24 12:00 Temperature Pulse Rate 77 Respiratory Rate 16 Blood Pressure 138/79 Pulse Oximetry 93 Oxygen Delivery Room Air Room Air Fraction of Inspired Oxygen 02/11/24 12:00 02/11/24 14:24 02/11/24 14:24 Temperature Pulse Rate 79 73 Respiratory Rate 20 Blood Pressure Pulse Oximetry 94 Oxygen Delivery Room Air Fraction of Inspired Oxygen 02/11/24 14:35 02/11/24 15:57 02/11/24 16:00 Temperature 97.6 F Pulse Rate 77 77 79 Respiratory Rate 20 14 Blood Pressure 165/85 H Pulse Oximetry 93 Oxygen Delivery Fraction of Inspired Oxygen 02/11/24 20:00 02/11/24 20:00 02/11/24 22:13 Temperature 97.5 F L Pulse Rate 61 65 Respiratory Rate 18 20 Blood Pressure 152/80 H Pulse Oximetry 95 Oxygen Delivery Room Air Fraction of Inspired Oxygen 02/11/24 23:52 02/12/24 00:00 02/12/24 01:58 Temperature 98.2 F Pulse Rate 65 62 68 Respiratory Rate 18 20 Blood Pressure 147/74 H Pulse Oximetry 94 Oxygen Delivery Fraction of Inspired Oxygen 02/12/24 02:07 02/12/24 03:51 02/12/24 04:00 Temperature 98.5 F Pulse Rate 73 61 58 L Respiratory Rate 20 18 Blood Pressure 151/75 H Pulse Oximetry 95 Oxygen Delivery Fraction of Inspired Oxygen 02/12/24 07:25 02/12/24 07:25 02/12/24 07:36 Temperature Pulse Rate 65 64 Respiratory Rate 20 20 Blood Pressure Pulse Oximetry 95 Oxygen Delivery Room Air Fraction of Inspired Oxygen 21 Intake/Output Intake/Output: Intake & Output 02/09/24 02/10/24 02/11/24 02/12/24 23:59 23:59 23:59 23:59 Intake Total 1770 240 Balance 1770 240 Meds/Results Medications: Active Medications Generic Name Dose Route Start Last Admin Trade Name Freq PRN Reason Stop Dose Admin Acetaminophen 650 mg 02/10/24 15:26 Acetaminophen 325 Mg Tablet PO Q4H PRN Mild Pain (1-3) or Fever Albuterol 2 puff 02/10/24 22:45 Albuterol Sulfate (*Sp) Aerosol 1 Puff INHALATION Q12HRT PRN SOB/wheezing Albuterol/Ipratropium 3 ml 02/11/24 02:00 02/12/24 07:25 Ipratropium 0.5 Mg/Albuterol Sulfate 2.5 Mg Ampul.Neb 3 Ml INHALATION 3 ml Q6HRT TRUONG Administration Aspirin 325 mg 02/11/24 08:00 02/12/24 08:14 Aspirin 325 Mg Tablet PO 325 mg DAILY@0800 TRUONG Administration Clopidogrel Bisulfate 75 mg 02/11/24 09:00 02/12/24 08:14 Clopidogrel Bisulfate 75 Mg Tablet PO 75 mg QAM TRUONG Administration Diazepam 10 mg 02/10/24 21:09 Diazepam (*Crx) 5 Mg Tablet PO HS PRN anxiety Enoxaparin Sodium 40 mg 02/11/24 09:00 Enoxaparin 40 Mg/0.4 Ml Syringe SUB-Q DAILY [facility] Guaifenesin/Dextromethorphan 10 ml 02/11/24 00:00 02/12/24 08:15 Guaifenesin/Dextromethorphan 10 Ml Udc PO 10 ml Q4HR [facility] Administration Ceftriaxone Sodium 1 gm in 50 mls @ 100 mls/hr 02/11/24 21:00 02/11/24 20:01 Rocephin 1 Gm/Ns 50 Ml IVPB 100 mls/hr Q24H [facility] Administration Azithromycin 500 mg in 250 mls @ 250 mls/hr 02/11/24 21:00 02/11/24 21:14 Zithromax IVPB 250 mls/hr Q24H TRUONG Administration Metoprolol Succinate 100 mg 02/11/24 09:00 02/12/24 08:14 Metoprolol Succinate Ext Rel 100 Mg Tabcr PO 100 mg DAILY [facility] Administration Ondansetron HCl 4 mg 02/10/24 13:41 Ondansetron Inj 4 Mg/2 Ml Vial IV PUSH Q4H PRN Nausea Perflutren Lipid Microsphere 0 ml 02/10/24 18:56 Perflutren Lipid Microspheres 1.5 Ml Vial Diluted To 10 Ml Total Volume IV PUSH 02/13/24 18:56 ONCE PRN adequate visualization Protocol Fluticasone/Salmeterol 2 puff 02/10/24 21:10 02/12/24 07:28 Fluticasone/Salmeterol 115-21 Mcg Inhaler 1 Puff INHALATION 2 puff Q12HRT TRUONG Administration Valacyclovir HCl 500 mg 02/11/24 09:00 02/12/24 08:14 Valacyclovir Hcl 500 Mg Tablet PO 500 mg DAILY [facility] Administration Radiology Results: ITS Impressions Head CT 02/10/24 10:32 Impression: No intracranial hemorrhage, mass, or acute infarct. Several chronic lacunar infarcts. Atrophy and chronic white matter changes, as above. Case discussed with Dr. Johnson at 10:35 AM on 01/14/2024. Head/Neck CTA 02/10/24 10:36 IMPRESSION: 1. 10% stenosis of the right carotid bulb relative to normal distal artery lumen diameter (NASCET criteria). 2. 0% stenosis of the left carotid bulb relative to normal distal artery lumen diameter. 3. Nonhemodynamically significant atherosclerotic plaque at the bilateral carotid siphons. No hemodynamically significant stenosis, thrombosis or aneurysm. Chest X-Ray 02/10/24 10:50 IMPRESSION: 1. Airspace opacities at left lung base, consistent with atelectasis versus pneumonia. Brain MRI 02/11/24 18:43 IMPRESSION: Small, focal acute infarcts involving the left periventricular white matter and right centrum semiovale. Labs Labs: Laboratory Results - last 24 hr 02/12/24 02/12/24 07:47 07:48 WBC 10.1 H RBC 4.97 Hgb 15.3 Hct 46.4 MCV 93.4 MCH 30.8 MCHC 33.0 RDW 13.9 Plt Count 157 MPV 9.9 Sodium 138 Potassium 4.4 Chloride 104 Carbon Dioxide 31 H Anion Gap 3 L BUN 14 Creatinine 1.00 Estim Creat Clear Calc 76 Estimated GFR > 60 Glucose 151 H Calcium 9.3 Quality VTE Prophylaxis VTE prophylaxis: mechanical ordered and pharmacologic ordered
--- NOTE | 2024-02-12 16:31 | P.CONNEU_ITS ---
Assessment and Plan Assessment and plan (1) Left-sided cerebrovascular accident (CVA): Code(s): I63.9 - Cerebral infarction, unspecified Status: Acute Assessment and Plan: Patient presented with right-sided weakness and some speech difficulty probably dysarthria from which she has made an improvement. However MRI of the brain shows a finding of infarcts on both hemispheres on diffusion scanning and this may require some follow-up. Plan Patient used to smoke till October and is no longer smoking which is a good news. I would suggest to check his echocardiogram and a lipid profile and start him on a statin atorvastatin 40 mg a day and continue the aspirin and Plavix. The patient should be followed up for risk factor management since he has shown a fair improvement from the stroke. MRI of the brain shows a new infarct in both cerebral hemispheres and hence a cardiac source must be looked into. You may consider a prolonged cardiac monitoring for 4 weeks in light of this finding. Echocardiogram has been planned for tomorrow. We should follow the results of these. Consult date: 02/12/24 HPI: Carmen Morgan is a 73 year old male With history of new onset right-sided weakness 2 days ago which since that time has improved to significant degree. He thought that the symptoms lasted for almost 2 days. He is able to walk around the room. He also had some difficulty speech but no significant problem with swallowing. No prior history of stroke or myocardial infarction or diabetes mellitus. He used to smoke up to 1 pack of cigarettes a day but he stop smoking October. He lives by himself since his 25 years ago. He only child is a daughter with the nurse lives in [place]. He denies any difficulty with the overall functioning. On admission a CT scan of the brain had shown some old infarct but no new findings were seen. CT angiogram of the head and neck also did not show any large vessel occlusion. MRI of the brain was performed which shows a small infarct in the left cerebral hemisphere. Findings will be discussed below. At this time he denies any headache or any other additional symptoms. No chest pain or shortness of breath. Review of Systems 2 Constitutional: Constitutional: Denies chills, Denies fever(s) and Denies weight loss Eyes: Eyes: Denies diplopia and Denies loss of vision ENT: Denies dizziness, Denies hearing loss and Denies tinnitus Cardiovascular: Cardiovascular: Denies chest pain, Denies syncope and Denies dyspnea Respiratory: Respiratory: Denies cough, Denies dyspnea and Denies wheezing Gastrointestinal: Gastrointestinal: Denies abdominal pain, Denies change in bowel habits and Denies vomiting Genitourinary: Genitourinary: Denies urinary incontinence Musculoskeletal: Musculoskeletal: Denies arthralgias and Denies joint swelling Integumentary/Breasts: Skin/Breast: Denies new lesions and Denies rash Neurologic: Reports as per HPI, Denies dizziness, Denies syncope and Denies loss of vision Psychiatric: Psychiatric: Denies anxiety and Denies depression Endocrine: Endocrine: Denies cold intolerance and Denies heat intolerance Hematologic/Lymphatic: Hematologic/Lymphatic: Denies easy bleeding and Denies easy bruising Allergic/Immunologic: Allergic/Immunologic: Denies no additional allergic/immunologic complaints and Denies wheezing PMFSH Past Medical History Medical History (Updated 02/12/24 @ 16:35 by Rebecca Arteaga MD) Left-sided cerebrovascular accident (CVA) Shingles COPD (chronic obstructive pulmonary disease) Anxiety Family History Family History Father Family history of lung cancer Mother Family history of coronary artery disease Other Cerebrovascular accident Social History Social History Smoking status: Former smoker Tobacco type: cigarettes Smoking end date: 10/20/23 Alcohol intake: never Substance use: never Do You Feel Safe in your Home?: Yes Lack of Transportation: No Lack of Food: Never True Current Housing: I Have Housing Concerned About Future Housing: No Difficulty Paying Gas/Electric Bills: No Difficulty Paying for Meds: No Currently Unemployed: No Education: Associate Degree Difficulty w/ Childcare or Family Care: No Spiritual care concerns: No Meds Home Medications and Allergies Home Medications ?Medication ?Instructions ?Recorded ?Confirmed ?Type albuterol sulfate 90 mcg/actuation 2 puff inhalation .q12hr 02/10/24 02/10/24 History aerosol inhaler budesonide-formoterol HFA 160 2 puff inhalation Q12H 02/10/24 02/10/24 History mcg-4.5 mcg/actuation aerosol inhaler diazepam 10 mg tablet 10 mg PO HS PRN anxiety 02/10/24 02/10/24 History meloxicam 15 mg tablet 15 mg PO DAILY 02/10/24 02/10/24 History metoprolol succinate 100 mg 100 mg PO DAILY 02/10/24 02/10/24 History tablet,extended release 24 hr valacyclovir 500 mg tablet 500 mg PO DAILY 02/10/24 02/10/24 History Allergies Allergy/AdvReac Type Severity Reaction Status Date / Time Penicillins Allergy Unknown Verified 07/30/11 13:38 Vital Signs Vital Signs - 24 hr 02/11/24 20:00 02/11/24 20:00 02/11/24 22:13 Temperature 97.5 F L Pulse Rate 61 65 Respiratory Rate 18 20 Blood Pressure 152/80 H Pulse Oximetry 95 Oxygen Delivery Room Air Fraction of Inspired Oxygen 02/11/24 23:52 02/12/24 00:00 02/12/24 01:58 Temperature 98.2 F Pulse Rate 65 62 68 Respiratory Rate 18 20 Blood Pressure 147/74 H Pulse Oximetry 94 Oxygen Delivery Fraction of Inspired Oxygen 02/12/24 02:07 02/12/24 03:51 02/12/24 04:00 Temperature 98.5 F Pulse Rate 73 61 58 L Respiratory Rate 20 18 Blood Pressure 151/75 H Pulse Oximetry 95 Oxygen Delivery Fraction of Inspired Oxygen 02/12/24 07:25 02/12/24 07:25 02/12/24 07:36 Temperature Pulse Rate 65 64 Respiratory Rate 20 20 Blood Pressure Pulse Oximetry 95 Oxygen Delivery Room Air Fraction of Inspired Oxygen 21 02/12/24 08:00 02/12/24 08:00 02/12/24 09:35 Temperature 97.7 F Pulse Rate 70 67 70 Respiratory Rate 14 14 Blood Pressure 146/81 H Pulse Oximetry 97 97 Oxygen Delivery Room Air Fraction of Inspired Oxygen 21 02/12/24 12:00 02/12/24 13:50 02/12/24 13:58 Temperature Pulse Rate 57 L 74 75 Respiratory Rate 20 20 Blood Pressure Pulse Oximetry Oxygen Delivery Fraction of Inspired Oxygen 02/12/24 15:20 Temperature 97.7 F Pulse Rate 73 Respiratory Rate 16 Blood Pressure 140/93 H Pulse Oximetry 96 Oxygen Delivery Fraction of Inspired Oxygen Exam 2 Const: General: no acute distress Orientation/consciousness: oriented to person, oriented to place and oriented to time HENMT: Head: normocephalic and atraumatic Ears: hearing grossly normal bilaterally and external ears normal Face/Nose/Sinus: Normal external nose present Mouth: Yes Normal oral and palatal mucosa present Other: Minimal flattening of the right nasolabial fold. No significant dysarthria Eyes: General: appearance normal, both eyes and all related structures E yelids: eyelids normal Conjunctivae: conjunctivae normal Pupils: Equal, round and reactive pupils present EOM: No Nystagmus present Neck: Neck: normal visual inspection Resp: Effort & Inspection: normal respiratory effort Cardio: Rate: regular rate Rhythm: regular rhythm Other: no cardiac murmur Skin: General skin exam: normal color Neuro: General: oriented to person, oriented to place and oriented to time Cranial nerves: Yes CN's II-XII intact bilaterally, Yes Equal, round and reactive pupils present, Yes Bilaterally intact EOM present, Yes Nystagmus not present, Yes Normal facial strength present, Yes facial symmetry, Yes Midline tongue present, Yes Symmetric palate elevation present, Yes Normal hearing present, Yes Ability to bilaterally elevate shoulders present and No Nystagmus present Speech: normal speech Gait exam (Neuro): Normal gait present M otor exam (neuro): 5/5 motor strength present throughout, Normal motor muscle tone present throughout and Motor abnormalities not present Sensory Exam: n ormal sensation Deep tendon reflexes (DTR's): Right triceps reflex intensity grade: 1+, Left triceps reflex intensity grade: 1+, Rt Biceps (C5, C6): 1+, Left biceps reflex intensity grade: 1+, Right brachioradialis reflex intensity grade: 1+, Left brachioradialis reflex intensity grade: 1+, Right patellar reflex intensity grade: 1+, Left patellar reflex intensity grade: 1+, Right ankle reflex intensity grade: 1+ and Left ankle reflex intensity grade: 1+ C oordination: [id number] test normal, tandem gait normal and Romberg test negative Other: minimal flattening of the right nasal labial fold compared to the left side. He is able to ambulate independently without any problem. Extrem: General: normal to inspection Psych: Appearance: grossly normal Mental Status: mental status grossly normal Affect: normal affect Attitude: cooperative Results Labs 02/12/24 07:47 02/12/24 07:48 Labs: Short CBC 02/12/24 Range/Units 07:47 WBC 10.1 H (4.5-10.0) K/mm3 Hgb 15.3 (14.0-18.0) g/dL Hct 46.4 (42.0-52.0) % Plt Count 157 (150-375) k/mm3 [facility] 02/12/24 07:48 Sodium 138 Potassium 4.4 Chloride 104 Carbon Dioxide 31 H BUN 14 Creatinine 1.00 Glucose 151 H Calcium 9.3
[2024-02-12 20:26] LABS: Cholesterol 224 mg/dL (0-200); HDL Direct 31 mg/dL; Triglycerides 137 mg/dL (<150)
[2024-02-12] MEDS: AZITHROMYCIN 500 MG/NS 250 ML 500 MG/250 ML BAG 250 MG IVPB (20:28)
[2024-02-12 20:36] LABS: LDL Cholesterol Direct 150 mg/dL
[2024-02-13] VITALS: BP 151/71; PULSE 67; PULSE 68; RESP 20; TEMP 36.6; O2SAT 97
[2024-02-13 04:00] VITALS: BP 151/66; PULSE 55; PULSE 64; RESP 20; TEMP 36.3; O2SAT 95
[2024-02-13 05:58] LABS: Hematocrit 47.2 % (42.0-52.0); Hemoglobin 15.2 g/dL (14.0-18.0); Mean Corpuscular HGB Conc 32.2 g/dl (32-36); Mean Corpuscular Hemoglobin 30.6 pg (26-34); Mean Corpuscular Volume 95.2 fl (80-100); Mean Platelet Volume 10.4 fl (7.4-10.4); Platelet Count Result 163 k/mm3 (150-375); Red Blood Count 4.96 M/mm3 (4.6-6.20); White Blood Count 8.1 K/mm3 (4.5-10.0)
[2024-02-13 06:00] LABS: Anion Gap 4 mmol/L (4-12); Blood Urea Nitrogen 17 mg/dL (9-20); Calcium 9.3 mg/dL (8.4-10.2); Carbon Dioxide 30 mmol/L (22-30); Chloride 103 mmol/L (98-107); Estimated CRCL calculation 76 ml/min; Estimated Glomerular Filt Rate > 60; Glucose 125 mg/dL (65-110); Potassium 4.3 mmol/L (3.4-5.0); Sodium 137 mmol/L (137-145)
[2024-02-13] MEDS: guaiFENesin/DEXTROMETHORPHAN 10 ML UDC PO ×2 (06:09→09:06)
[2024-02-13 08:00] VITALS: BP 127/78; PULSE 60; PULSE 68; RESP 18; TEMP 36.7; O2SAT 97
[2024-02-13] MEDS: ATORVASTATIN 40 MG TABLET PO (09:04)
[2024-02-13] MEDS: valACYclovir HCL 500 MG TABLET PO (09:04)
[2024-02-13 09:05] VITALS: PULSE 62
[2024-02-13] MEDS: METOPROLOL SUCCINATE EXT REL 100 MG TABCR PO (09:05)
[2024-02-13] MEDS: CLOPIDOGREL BISULFATE 75 MG TABLET PO (09:05)
[2024-02-13] MEDS: ASPIRIN 81 MG CHEWABLE TABLET PO (09:14)
--- NOTE | 2024-02-13 09:41 | P.DS_ITS ---
DS: Admitting Diagnosis Discharge Date 02/12 Admitting Diagnosis rt sided weakness DS: Discharge Diagnosis Discharge Diagnosis (1) Right sided weakness: Code(s): R53.1 - Weakness Status: Acute (2) Elevated troponin: Code(s): R79.89 - Other specified abnormal findings of blood chemistry Status: Acute (3) Pneumonia: Code(s): J18.9 - Pneumonia, unspecified organism Status: Acute (4) COPD (chronic obstructive pulmonary disease): Code(s): J44.9 - Chronic obstructive pulmonary disease, unspecified Status: Acute (5) Anxiety: Code(s): F41.9 - Anxiety disorder, unspecified Status: Acute DS: Summary Hospital Course Hospital Course: Carmen Morgan is a 73 year old male With history of new onset right-sided weakness 2 days ago which since that time has improved to significant degree. He thought that the symptoms lasted for almost 2 days. He is able to walk around the room. He also had some difficulty speech but no significant problem with swallowing. No prior history of stroke or myocardial infarction or diabetes mellitus. He used to smoke up to 1 pack of cigarettes a day but he stop smoking October. He lives by himself since his 25 years ago. He only child is a daughter with the nurse lives in [place]. He denies any difficulty with the overall functioning. On admission a CT scan of the brain had shown some old infarct but no new findings were seen. CT angiogram of the head and neck also did not show any large vessel occlusion. MRI of the brain was performed which shows a small infarct in the left cerebral hemisphere. He denies any headache or any other additional symptoms. No chest pain or shortness of breath. Echocardiogram was done. He will be started on a statin atorvastatin 40 mg a day and continue the aspirin and Plavix. The patient should be followed up for risk factor management since he has shown a fair improvement from the stroke. MRI of the brain shows a new infarct in both cerebral hemispheres and hence a cardiac source must be looked into. We discussed a prolonged cardiac monitoring for 4 weeks but he prefers to discuss it with pcp and arrange that later if needed. He is eager to be discharged. Status at Discharge Functional status at discharge: independent ambulation Overall status at discharge: patient is back to baseline Time Spent with Patient Time attestation: Total time spent providing and/or coordinating discharge services: Time spent: Greater than 30 minutes Exam Narrative: General: well appearing, appears stated age. HEENT: Left facial droop, normocephalic, atraumatic. Mucous membranes moist. EOMI, PERRLA, bilateral sclera anicteric, no conjunctival injection. Neck supple without JVD, lymphadenopathy, or bruit. Respiratory: Rhonchi and inspiratory and expiratory wheezes Cardiovascular: Regular rate and rhythm, normal S1-S2 upon ascultation. No murmurs, rubs, or clicks. PMI is nondisplaced, capillary refill less than 3 second. Abdomen: Soft, round, no pulsatile masses, nondistended and nontender. No rebound, no guarding. No CVA tenderness, no hepatosplenomegaly. Bowel sounds present to all four quadrants. No high pitch or tinkling sounds, resonant to percussion. Extremities: No cyanosis, clubbing, or edema present. Pulses are palpable 2/2. Active ROM to all four extremities. 5/5 strength in all extremities Neuro: Alert and orientated x 4. PERRLA. Cranial nerves 2-12 intact without focal deficit. Skin: Warm, dry, and intact, without rash, erythema, or lesion. Psych: pleasant, cooperative, normal speech, normal affect, no hallucinations, no dysarthia Const: General: comfortable Resp: Effort & Inspection: normal respiratory effort Auscultation: clear to auscultation bilaterally DS: Data Data Completed and Pending Labs on day of discharge: Labs from last 24 hours 02/13/24 02/12/24 05:23 07:48 WBC 8.1 RBC 4.96 Hgb 15.2 Hct 47.2 MCV 95.2 MCH 30.6 MCHC 32.2 RDW 14.0 Plt Count 163 MPV 10.4 Sodium 137 Potassium 4.3 Chloride 103 Carbon Dioxide 30 Anion Gap 4 BUN 17 Creatinine 1.00 Estim Creat Clear Calc 76 Estimated GFR > 60 Glucose 125 H Calcium 9.3 Triglycerides 137 Cholesterol 224 H LDL Cholesterol Direct 150 HDL Direct 31 Discharge Plan Discharge Attending physician on discharge: Sid Camp Consulting providers: Rebecca Arteaga Discharging Clinician: Michelle José Patient Disposition: Home, Self-Care Activity: may shower Diet: as tolerated and heart healthy Discharge Instructions: I will order you cholesterol medication. please take that, baby aspirin and plavix. Follow up with your primary care provider to discuss alarm security or surveillance monitor. Please do not restart smoking. Continue daily activities- walking is a great start, lean meat, fish, fruits/veggies. Patient Instructions: Antibiotic Form, Pain Management (DC), Stroke (DC) Patient Language: Maltese Stand Alone Forms: General Discharge Information Follow-up/Referrals: Rebecca Arteaga MD [Physician] - 2 Weeks Boinlla,Vernon Pepper MD [Primary Care Provider] - 1 Week Discharge Medications: New atorvastatin 40 mg Tablet 40 mg PO DAILY Qty: 90 0RF clopidogrel 75 mg Tablet 75 mg PO QAM Qty: 90 0RF aspirin [Children's Aspirin] 81 mg Tablet,Chewable 81 mg PO DAILY@0800 Qty: 90 0RF azithromycin [Zithromax] 250 mg tablet 250 mg PO DAILY Qty: 3 0RF Continued meloxicam 15 mg tablet 15 mg PO DAILY metoprolol succinate 100 mg tablet extended release 24 hr 100 mg PO DAILY valacyclovir 500 mg tablet 500 mg PO DAILY albuterol sulfate 90 mcg/actuation HFA aerosol inhaler 2 puff INHALATION .q12hr diazepam 10 mg tablet 10 mg PO HS PRN (Reason: anxiety) budesonide-formoterol 160-4.5 mcg/actuation HFA aerosol inhaler 2 puff INHALATION Q12H Date of admission: 02/10/24 13:41 Primary Care Provider: GissellVernon Admitting Provider: Deyvi Lundy Attending physician on admission: Deyvi Lundy Condition: Stable Quality VTE Prophylaxis VTE prophylaxis: mechanical ordered and pharmacologic ordered Hospitalist MIPS Heart Failure (Exclusion) Patient has history of Heart Transplant or Left Ventricular Assistive Device?: No IF YES, STOP HERE Heart Failure (Qualifier) Patient has current or prior documentation of LVEF less than or equal to 40%, or mod/servere depressed LVSF?: No IF NO, STOP HERE
[2024-02-13 10:07] VITALS: PULSE 76; RESP 20
[2024-02-13] MEDS: FLUTICASONE/SALMETEROL 115-21 MCG INHALER 1 PUFF 2 PUFF INHALATION (10:07)
[2024-02-13] MEDS: IPRATROPIUM 0.5 MG/ALBUTEROL SULFATE 2.5 MG AMPUL.NEB 3 ML INHALATION (10:07)
[2024-02-13 10:08] VITALS: O2SAT 94
== END 2024-02-13 11:20 | disposition home or self-care (01) ==
LOC: ANHED 13:58 → ANH3MEDSUR 15:11 → ANH2MED 18:19 → ANH3MEDSUR 02-14 07:34
PROVIDERS: Nurse Practitioner; Nurse Practitioner Gerontology; Psychiatry & Neurology Neurology; Admitting Provider Internal Medicine; Emergency Provider Family Medicine; PCP Family Medicine; Visit Provider General Practice
DX: R53.1 Weakness (principal); R79.89 Other specified abnormal findings of blood chemistry; J18.9 Pneumonia, unspecified organism; J44.0 Chronic obstructive pulmonary disease with (acute) lower respiratory infection; F41.9 Anxiety disorder, unspecified; R47.9 Unspecified speech disturbances; Z79.51 Long term (current) use of inhaled steroids; Z79.899 Other long term (current) drug therapy; Z87.891 Personal history of nicotine dependence; Z88.0 Allergy status to penicillin
CPT/HCPCS: 36415; 70450; 70496; 70498; 70551; 71045; 80048; 80053; 80061; 82948; 84484; 85025; 85027; 85610; 85730; 93005; 93306; 94640; 96365; 96366; 96375; 97161; 97165; 99285; A9270; G0378; J0456; J0696; Q9967